=== PATIENT | female | born 1950 | race Caucasian/White ===

== ENCOUNTER → 2016-11-16 | Outpatient (CLI) | payer OTHER, MEDICARE ==
--- NOTE | 2016-11-16 15:04 | MA ---
Screening Digital Mammogram With iCAD Analysis Clinical Indications: Routine screening. The patient has had benign right breast biopsies. Technique: Standard cephalocaudal projections are obtained. Digital breast tomosynthesis was performe d in the MLO projection with reconstruction at 1.0 mm slice thickness and composite MLO views reconst ructed. This examination is processed by the iCAD computer aided detection system. Comparison: October 2015, October 2014, October 2013, October 2012, September 2011, September 2010, Sep, September 2008. Breast density: Type C: Heterogeneously dense. Findings: CAD was reviewed. No masses, suspicious calcifications or secondary signs of malignancy are seen. There has been no significant change in the appearance of either breast. Impression: Negative mammogram. BI-RADS 1. Recommendation: Routine mammographic screening in one year as long as physical examination is negativ e in this patient with heterogeneously dense breast parenchyma. [facility] will send a result letter to the patient. Negative mammography should not preclude additional workup of a clinically suspicious finding. The patient's information is entered into a reminder system with a target due date for her next mammo gram.
== END ==
LOC: FIMAGING 10:39
DX: Z12.31 Encounter for screening mammogram for malignant neoplasm of breast (principal)
CPT/HCPCS: G0202

== ENCOUNTER 2017-04-11 17:02 | Emergency (ER) | payer OTHER, MEDICARE ==
[2017-04-11 17:20] VITALS: BP 115/67; PULSE 74; RESP 18; TEMP 98; O2SAT 95
--- NOTE | 2017-04-11 17:25 | EDPHY ---
H & P Time Seen by Provider: 04/11/17 17:24 HPI/ROS: Chief complaint. Leg laceration HPI. 5-year-old female presents with laceration to her right leg sustained just prior to arrival. She cut it on a piece of glass that was sticking out of a box. 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 She has no sense of retained foreign body. Denies focal weakness paresthesias. She is current on her tetanus immunization. No other injuries. ROS Constitutional. no fever/chills, no weakness Eyes. no problems with vision ENT. no sore throat, no nasal drainage Cardiovascular. no chest pain Respiratory. no shortness of breath, no cough Abdominal. no abdominal pain, no nausea/vomiting, no diarrhea . no problems urinating MS. no calf pain/swelling, no neck/back pain, no joint pain Skin. Right leg laceration Lymph. no swollen glands Neuro. no headache, no dizziness, no difficulty walking or with speech Past Medical/Surgical History: Past medical history significant for hypertension, GERD, dyslipidemia Social History: , nonsmoker, no alcohol Smoking Status: Never smoked Physical Exam: General Appearance: Alert pleasant well-developed female mild distress vital signs stable Eyes: Pupils equal and round no pallor or injection. ENT, Mouth: Mucous membranes are moist. Respiratory: There are no retractions, lungs are clear to auscultation. Cardiovascular: Regular rate and rhythm. Gastrointestinal: Abdomen is soft and nontender, no masses, bowel sounds normal. Neurological: Awake and alert, sensory and motor exams grossly normal. Skin: 2 cm slightly irregular laceration to the lateral aspect of the right lower extremity. Distal motor vascular sensitivity is intact. No evidence of foreign body Musculoskeletal: Neck is supple nontender. Extremities symmetrical, full range of motion. Psychiatric: Patient is oriented X 3, there is no agitation. Constitutional: Initial Vital Signs Temperature (C) 36.6 C 04/11/17 17:17 Heart Rate 74 04/11/17 17:17 Respiratory Rate 18 04/11/17 17:17 Blood Pressure 115/67 04/11/17 17:17 O2 Sat (%) 95 04/11/17 17:17 O2 Delivery Mode Room Air Allergies/Adverse Reactions: latex Allergy (Intermediate, Verified 07/17/14 09:30) Home Medications: Medication Instructions Recorded Esomeprazole Magnesium [Nexium] 40 mg PO 09/02/12 Losartan Potassium [Cozaar 25 mg 40 09/02/12 (RX)] Sertraline HCl 09/02/12 Simvastatin 20 mg PO 09/02/12 Hydrocodone/APAP 5/325 [[place] 1 - 2 tab PO Q4H PRN #10 tab 07/17/14 5/325 (*)] Medical Decision Making Procedures: Procedure: Laceration repair. Verbal consent was obtained from the patient. The 2 cm laceration on the leg was anesthetized in the usual fashion. The wound was irrigated, draped and explored to its base with a gloved finger. There were no deep structures involved. No tendon injury was identified. The wound was repaired with 4 4-0 prolene sutures. The wound repair was simple. The procedure was performed by myself. ED Course/Re-evaluation: Patient remained stable. The patient, her , and I discussed treatment plan including criteria for return and importance of fall further evaluation. They expressed understanding and agreement Differential Diagnosis: I considered tendon involvement, retained foreign body, infection potential of wound Departure - Departure Disposition: Home, Routine, Self-Care Clinical Impression: Leg laceration Qualifiers: Encounter type: initial encounter Laterality: right Qualified Code(s): S81.811A - Laceration without foreign body, right lower leg, initial encounter Condition: Good Instructions: Care For Your Stitches (ED) Additional Instructions: Keep cut clean and dry. You may shower with you stitches in. Return for signs of infection. Stitches out 10 days Referrals: Meggan Churchill MD [Primary Care Provider] - As per Instructions
== END 2017-04-11 18:22 | disposition home or self-care (01) ==
LOC: CED 17:02
PROC: 0HQKXZZ Repair Right Lower Leg Skin, External Approach (ICD-10-PCS; principal; 2017-04-11)
DX: S81.811A Laceration without foreign body, right lower leg, initial encounter (principal); I10 Essential (primary) hypertension; Z91.040 Latex allergy status; W25.XXXA Contact with sharp glass, initial encounter; Y92.009 Unspecified place in unspecified non-institutional (private) residence as the place of occurrence of the external cause

== ENCOUNTER → 2017-04-20 | Outpatient (CLI) | payer OTHER, MEDICARE | LOC: FIMAGING 10:47 | PROVIDERS: ATTEND Internal Medicine | DX: Z13.820 Encounter for screening for osteoporosis (principal); M85.80 Other specified disorders of bone density and structure, unspecified site; Z78.0 Asymptomatic menopausal state; Z82.62 Family history of osteoporosis ==

== ENCOUNTER → 2017-11-18 | Outpatient (CLI) | payer OTHER, MEDICARE | LOC: FIMAGING 10:21 | PROVIDERS: ATTEND Internal Medicine | DX: Z12.31 Encounter for screening mammogram for malignant neoplasm of breast (principal) ==

== ENCOUNTER → 2018-11-22 | Outpatient (CLI) | payer OTHER, MEDICARE | LOC: FIMAGING 09:52 | PROVIDERS: ATTEND Internal Medicine | DX: Z12.31 Encounter for screening mammogram for malignant neoplasm of breast (principal) ==